=== PATIENT | female | born 1975 | race African-American/Black ===

== ENCOUNTER 2025-05-23 07:41 | Day surgery (SDC) | payer BC ==
[2025-05-23] MEDS ORDERED: Propofol 200 MG/20 ML SDV IV ONE (07:42)
[2025-05-23] MEDS ORDERED: Sodium Chloride 0.9% 10 ML Syringe FLUSH PRN (07:45)
[2025-05-23] MEDS: Lactated Ringers 1,000 ML IV SCH (08:27)
== END 2025-05-23 10:11 | disposition home or self-care (01) ==
LOC: FB.SDS 07:41
PROVIDERS: ATTEND Surgery
DX: Z12.11 Encounter for screening for malignant neoplasm of colon (principal); D12.0 Benign neoplasm of cecum; K63.5 Polyp of colon; F17.210 Nicotine dependence, cigarettes, uncomplicated; Z79.899 Other long term (current) drug therapy
CPT/HCPCS: 00811; 45384; 45385; 88305; A9270; J2003; J2704; J7120